=== PATIENT | male | born 1950 | race Caucasian/White ===

== ENCOUNTER 2021-01-20 12:59 | Emergency (ER) | payer OTHER ==
[~2021-01-20] VITALS: Ht 162.6 cm; Wt 67.6 kg
[2021-01-20 13:05] VITALS: BP_SYST 160
[2021-01-20] MEDS ORDERED: TRAM50TA PO (13:24)
[2021-01-20] MEDS ORDERED: NAPR-688 PO (13:24)
[2021-01-20 13:35] VITALS: BP_SYST 160
== END 2021-01-20 13:43 | disposition home or self-care (01) ==
LOC: SED 12:59
DX: S29.012A Strain of muscle and tendon of back wall of thorax, initial encounter (principal); Z79.899 Other long term (current) drug therapy; X50.1XXA Overexertion from prolonged static or awkward postures, initial encounter; Y93.89 Activity, other specified; Y92.89 Other specified places as the place of occurrence of the external cause; Y99.8 Other external cause status
CPT/HCPCS: 99283